=== PATIENT | male | born 1980 | race Caucasian/White ===

== ENCOUNTER 2023-01-25 09:51 | Outpatient (AMB) | payer OTHER, SELFPAY ==
[2023-01-25 09:56] VITALS: BP 155/92; PULSE 82; BMI 26.6
--- NOTE | 2023-01-25 09:56 | MHC.OFFVIS ---
Intake Vital Signs 01/25/23 09:56 Height 5 ft 7 in Weight 169 lb 12.095 oz BMI 26.6 BP 155/92 H Blood Pressure Location Lt brachial Position Sitting Pulse 82 Intake Visit Reasons: Dysphagia Intake Note: Osei presents in the office as a new patient for Dysphagia. CC: He states that he is having issues swallowing. Right now he feels like there is something stuck in his throat. Has been going on for about a year. 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 Allergies No Known Allergies Allergy (Verified 01/25/23 09:56) HPI HPI Comments History of Present Illness Details A 42 y/o male seizure disorder, referred with - globus-sometimes worse than others- - feels pressure in his ears- and a headache- he has actually choked on things- pills/ soda- Anxiety- no wt loss- appetite is good- regurg- He had throat surgery as an -as well again in HS- no detail-he describes some type of abnormality, however he has no documentation or recollection of diagnoses or course treatment He is worried about the anesthesia-due to unclear family hx-he has no detail as well No abdominal pain, fever, chills or change in bowels His and daughter are present [facility] Social History (Updated 01/26/23 @ 15:05 by Didi Walters PA-C) Household Members: Family Alcohol intake: current Alcohol intake frequency: does not drink Patient Tobacco Use Status: Never used Tobacco Current occupational status: disabled Review of Systems Const All systems reviewed & are unremarkable except as noted in HPI and below ENT Reports dysphagia Card Denies chest pain and Denies dyspnea Resp Denies dyspnea GI Reports dysphagia, Denies nausea, Denies vomiting and Reports other (waterbrash) Psych Reports anxiety Physical Exam Vital Signs: Last Vital Signs Pulse 82 01/25/23 09:56 BP 155/92 H 01/25/23 09:56 BMI result Body Mass Index 26.6 Const General: cooperative, healthy appearing, comfortable, no acute distress and anxious Orientation/consciousness: patient oriented x3 Limitations: no limitations Eyes Conjunctivae: conjunctivae normal Resp Effort & Inspection: normal respiratory effort and able to speak in complete sentences Auscultation: clear to auscultation bilaterally, no crackles, no rales and no rhonchi Cardio Rate: regular rate Rhythm: regular rhythm Heart sounds: S1 normal heart sound present and S2 normal heart sound present GI Palpation (GI): Soft to palpation and nontender Auscultation: normal bowel sounds Skin General skin exam: no rashes or lesions noted Neuro General: patient oriented x3 Extrem General: Yes full ROM Psych Appearance: grossly normal and well kempt Mental Status: mental status grossly normal Speech and movement: Normal speech and movement present and Clear speech present Affect: Anxious affect present Attitude: cooperative Thought process: Normal thought process present Thought content: Normal thought content present Insight: Good insight present (Psych) Judgement: Good judgement present (Psych) Assessment & Plan Assessment & Plan (1) Dysphagia: Comment: GI history is unclear-previous surgery limited detail, unable to assess-will get barium swallow, depending on findings how to proceed - Code(s): R13.10 - Dysphagia, unspecified Plan: Barium swallow (2) Epilepsy: Comment: Well controlled Code(s): G40.909 - Epilepsy, unspecified, not intractable, without status epilepticus (3) Globus syndrome: Comment: further eval -may have overlapping, anxiety may play a role Code(s): R09.A2 - Foreign body sensation, throat Plan: Barium swallow (4) Acid reflux: Comment: Encouraged to take PPI can reassess Code(s): K21.9 - Gastro-esophageal reflux disease without esophagitis Plan: Omeprazole 40 mg Review reflux precautions Plan BS Pantoprazole 40mg CBC CMP TSH Orders: Orders Comprehensive Met. Panel 01/25/23 K58.9 - Irritable bowel syndrome without diarrhea Thyroid Stimulating Hormone 01/25/23 R09.A2 - Foreign body sensation, throat, R13.10 - Dysphagia, unspecified FL barium swallow 01/25/23 G40.909 - Epilepsy, unspecified, not intractable, without status epilepticus, R13.10 - Dysphagia, unspecified Complete Blood Count Auto Diff 01/25/23 G40.909 - Epilepsy, unspecified, not intractable, without status epilepticus, R13.10 - Dysphagia, unspecified Medications: New pantoprazole 40 mg PO DAILY 30 days 30 tabs 11RF Patient Instructions: Recommend pantoprazole 40 mg daily Reviewed reflux precautions Will get barium swallow for evaluation in discussed-likely following with EGD Will further discuss plan when results available for review Eat slowly chew well to avoid choking/aspiration He will have baseline labs Coding Level of Care Code New Pt Level 4 (00190) Diagnoses Dysphagia R13.10 Epilepsy G40.909 Globus syndrome R09.A2 Acid reflux K21.9 Time Spent (min) 35
== END 2023-01-25 11:49 | disposition home or self-care (01) ==
PROVIDERS: PCP Hospitalist; Visit Provider Physician Assistant
DX: R13.10 Dysphagia, unspecified (principal); G40.909 Epilepsy, unspecified, not intractable, without status epilepticus; R09.A2 Foreign body sensation, throat; K21.9 Gastro-esophageal reflux disease without esophagitis
CPT/HCPCS: 99204

== ENCOUNTER 2023-01-25 09:51 | Outpatient (REF) | payer OTHER, SELFPAY | END 2023-01-25 09:52 | disposition home or self-care (01) | LOC: HO.LAB 09:51 | PROVIDERS: PCP Hospitalist; Visit Provider Physician Assistant | DX: R13.10 Dysphagia, unspecified (principal); K58.9 Irritable bowel syndrome, unspecified; R09.A2 Foreign body sensation, throat; G40.909 Epilepsy, unspecified, not intractable, without status epilepticus | CPT/HCPCS: 36415; 80053; 84443; 85025 ==